=== PATIENT | male | born 1960 | race Caucasian/White ===

== ENCOUNTER 2019-03-27 04:43 | Emergency (ER) | payer OTHER ==
[~2019-03-27] VITALS: Ht 165.1 cm; Wt 81.6 kg
[2019-03-27 04:50] VITALS: BP 180/92
--- NOTE | 2019-03-27 04:52 | NUR ---
Fina santillan in [facility] - 03/27/19 at 0455 by MASHA PT TAKEN TO BED 1
--- NOTE | 2019-03-27 04:56 | NUR ---
Dr. Rod examining patient.
--- NOTE | 2019-03-27 04:57 | NUR ---
PT TAKEN TO BED 1
--- NOTE | 2019-03-27 05:00 | NUR ---
PT BIB SON C/O SUPRAPUBIC PAIN W/ DYSURIA X4 HRS; PT STATES SUDDEN ONSET OF CONSTANT CRAMPING, 5/10 PAIN; +TENDERNESS W/ PALP. PT ACTING APPROPRIATLY, SPEAKING IN CLEAR AND COMPLETE SENTENCES. BOWEL SOUND ACTIVE. BREATHING EQUAL AND UNLABORED. PT IN BED, BED IN LOWER LOCKED POSITION; BEDRAILS UP X1. ERMD AWARE OF PT STATUS. URINE SAMPLE PROVIDED BY PT AT BEDSIDE. PMH: ALBINA
[2019-03-27] MEDS ORDERED: ONDANSETRON 4 MG/2 ML VIAL IVP ONE (05:05)
[2019-03-27] MEDS ORDERED: NACL 0.9% 1,000 ML IV ONE (05:05)
[2019-03-27] MEDS ORDERED: KETOROLAC 15 MG/ML VIAL IVP ONE (05:05)
--- NOTE | 2019-03-27 05:10 | NUR ---
LABS DRAWN AT IV START BY RN AND SENT TO LAB.
--- NOTE | 2019-03-27 05:20 | NUR ---
PT TAKEN TO CT
--- NOTE | 2019-03-27 05:36 | NUR ---
PT BACK FROM CT, PT POSITION FOR COMFORT; SON AT BEDSIDE. NO SIGNS OF DISTRESS AT THIS TIME.
[2019-03-27 05:47] LABS: ANION GAP 16.5 (8-16); CARBON DIOXIDE 25.2 mmol/L (21-32); CREATININE 1.3 mg/dL (0.7-1.3); POTASSIUM 3.7 mmol/L (3.5-5.1)
[2019-03-27 05:52] LABS: ALBUMIN 3.7 g/dL (3.4-5.0); TOTAL BILIRUBIN 0.5 mg/dL (0.0-1.0)
[2019-03-27 05:55] LABS: APPEARANCE,URINE HAZY (CLEAR); BILIRUBIN,URINE NEGATIVE (NEGATIVE); BLOOD, URINE 3+ (NEGATIVE); COLOR,URINE YELLOW (YELLOW); LEUKOCYTE ESTERASE ,URINE NEGATIVE (NEGATIVE); NITRITE, URINE NEGATIVE (NEGATIVE); PH,URINE 5.5 (5.0-9.0); UGLUCOSE NEGATIVE (NEGATIVE)
[2019-03-27 06:14] LABS: BASOPHILS % (AUTO) 0.7 % (0.0-2.0); EOSINOPHILS # (AUTO) 0.1 K/uL (0-0.4); EOSINOPHILS % (AUTO) 2.7 % (0.0-4.0); HEMATOCRIT 39.9 % (36-52); HEMOGLOBIN 12.6 g/dL (12.0-18.0); LYMPHOCYTES # (AUTO) 1.7 K/uL (2.0-11.5); LYMPHOCYTES % (AUTO) 32.5 % (20.5-51.1); MEAN CORPUSCULAR HEMOGLOBIN 21 pg (27-31); MEAN CORPUSCULAR HGB CONC 32 g/dL (33-37); MEAN CORPUSCULAR VOLUME 66.5 fL (80-94); MONOCYTES # (AUTO) 0.5 K/uL (0.8-1.0); MONOCYTES % (AUTO) 10.3 % (1.7-9.3); NEUTROPHILS # (AUTO) 2.8 K/uL (1.8-7.7); NEUTROPHILS % (AUTO) 53.8 % (42.2-75.2); PLATELET COUNT (AUTO) 159 K/uL (140-450); WHITE BLOOD COUNT (AUTO) 5.2 K/uL (4.8-10.8)
[2019-03-27 06:18] LABS: RBC,URINE TOO NUMEROUS TO COUN /HPF (0-5); WBC,URINE 0-5 /HPF (0-5)
[2019-03-27] MEDS ORDERED: MORPHINE SULFATE 4 MG/ML SYR IVP ONE (06:55)
--- NOTE | 2019-03-27 07:22 | NUR ---
REPORT OBTAINED FROM SKIN TANNER NURSE, PT IS RESTING IN BED, NO S/S OF DISTRESS, VSS, DENIES PAIN, WILL CONTINUE TO MONITOR.
--- NOTE | 2019-03-27 09:00 | NUR ---
EXPLAINED TO PT ABOUT TRANSFER PT TO [facility] FOR FURTHER TREATMENT, PT VERBALIZED UNDERSTANDING AND SIGNED DOCUMENTATION.
--- NOTE | 2019-03-27 09:30 | NUR ---
PT IS RESTING IN BED, VSS, DENIES PAIN, STILL WAITING FOR TRANSFER.
--- NOTE | 2019-03-27 11:30 | NUR ---
NO S/S OF DISTRESS, VSS, DENIES PAIN, STILL WAITING FOR INSURANCE RESPOND.
--- NOTE | 2019-03-27 12:45 | NUR ---
REPORT GIVEN TO EMILIA CLAY AT [facility], PT IS GOING TO ROOM 2146, UNDER CARE OF DR. NEGRON. INFORMED VOLUNTEER FIREFIGHTER TIME AROUND 1315.
[2019-03-27 13:15] VITALS: BP 127/70
--- NOTE | 2019-03-27 13:15 | NUR ---
PT IS PICKED UP BY BLS TRANSFERR[facility] TO [facility]. EXPLAINED TO PT, PT VERBALZIED UNDEERSTANDING, ALL BEDLONGING GOES WITH PT.
== END 2019-03-27 13:15 | disposition short-term general hospital (02) ==
LOC: MED 04:43
DX: N13.1 Hydronephrosis with ureteral stricture, not elsewhere classified (principal); K80.20 Calculus of gallbladder without cholecystitis without obstruction; K59.00 Constipation, unspecified
CPT/HCPCS: 36415; 74176; 80053; 81001; 82948; 83690; 85025; 87086; 87186; 96374; 96375; 99285; J1885; J2270; J2405; J7030; 99284

== ENCOUNTER 2023-05-20 14:15 | Emergency (ER) | payer SELFPAY ==
[~2023-05-20] VITALS: Ht 165.1 cm; Wt 91.2 kg
[2023-05-20 14:38] VITALS: BP 142/90; PULSE 68; RESP 14; TEMP 97.4; O2SAT 99
[2023-05-20 16:15] LABS: BASOPHILS % (AUTO) 0.3 % (0.0-2.0); EOSINOPHILS # (AUTO) 0.1 K/uL (0-0.4); EOSINOPHILS % (AUTO) 0.8 % (0.0-4.0); HEMATOCRIT 37.4 % (36-52); HEMOGLOBIN 11.9 g/dL (12.0-18.0); LYMPHOCYTES % (AUTO) 13.6 % (20.5-51.1); MEAN CORPUSCULAR HEMOGLOBIN 21 pg (27-31); MEAN CORPUSCULAR HGB CONC 32 g/dL (33-37); MEAN CORPUSCULAR VOLUME 65.7 fL (80-94); MONOCYTES # (AUTO) 0.7 K/uL (0.8-1.0); MONOCYTES % (AUTO) 8.7 % (1.7-9.3); NEUTROPHILS # (AUTO) 5.9 K/uL (1.8-7.7); NEUTROPHILS % (AUTO) 76.6 % (42.2-75.2); PLATELET COUNT (AUTO) 193 K/uL (140-450); RED BLOOD CELL COUNT(AUTO) 5.69 MIL/uL (4.20-6.10); RED CELL DISTRIBUTION WIDTH 16.1 % (11.6-13.7); WHITE BLOOD COUNT (AUTO) 7.7 K/uL (4.8-10.8)
[2023-05-20 16:35] LABS: ALBUMIN 3.6 g/dL (3.4-5.0); ANION GAP 11.9 (8-16); CALCIUM 8.5 mg/dL (8.5-10.1); CARBON DIOXIDE 24.5 mmol/L (21-32); CREATININE 1.9 mg/dL (0.6-1.3); POTASSIUM 4.4 mmol/L (3.5-5.1); TOTAL BILIRUBIN 0.5 mg/dL (0.0-1.0); TOTAL PROTEIN, SERUM 7.5 g/dL (6.4-8.2)
[2023-05-20 16:40] LABS: APPEARANCE,URINE CLEAR (CLEAR); BILIRUBIN,URINE NEGATIVE (NEGATIVE); BLOOD, URINE 3+ (NEGATIVE); COLOR,URINE YELLOW (YELLOW); LEUKOCYTE ESTERASE ,URINE NEGATIVE (NEGATIVE); NITRITE, URINE NEGATIVE (NEGATIVE); PH,URINE 5.5 (5.0-9.0); PROTEIN,URINE TRACE (NEGATIVE); UGLUCOSE 2+ (NEGATIVE); UROBILINOGEN,URINE 0.2 EU/dL (0.2 - 1)
[2023-05-20 16:50] LABS: BACTERIA,URINE FEW /HPF (None Seen); RBC,URINE 11-20 (MOD) /HPF (0-5); SQUAMOUS EPITHELIAL CELL,UR 0-3 (FEW) /LPF (0-3 (FEW)); WBC,URINE 0-5 /HPF (0-5)
[2023-05-20 16:51] LABS: CALCIUM OXALATE CRYSTALS,UR 0-10 /HPF (None Seen)
[2023-05-20] MEDS ORDERED: KETOROLAC 30 MG/ML VIAL IM ONE (16:55)
[2023-05-20] MEDS ORDERED: IBUP-2213 PO (17:03)
[2023-05-20] MEDS ORDERED: TAMS0.4C96 PO (17:03)
[2023-05-20 17:59] VITALS: BP 154/84; PULSE 64; RESP 16; TEMP 98.4; O2SAT 98
== END 2023-05-20 18:00 | disposition home or self-care (01) ==
LOC: MED 14:15
DX: N20.0 Calculus of kidney (principal); N23 Unspecified renal colic; E11.9 Type 2 diabetes mellitus without complications; I10 Essential (primary) hypertension; Z86.73 Personal history of transient ischemic attack (TIA), and cerebral infarction without residual deficits; Z79.4 Long term (current) use of insulin; Z79.899 Other long term (current) drug therapy
CPT/HCPCS: 36415; 74176; 80053; 81001; 83690; 85025; 96372; 99285; J1885